=== PATIENT | male | born 1995 | race Caucasian/White ===

== ENCOUNTER 2025-03-13 11:08 | Emergency (ER) | payer MEDICAID, SELFPAY ==
[2025-03-13 11:11] VITALS: BP 145/98; PULSE 80; RESP 18; TEMP 36.7; O2SAT 97; BMI 25.7
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
== END 2025-03-13 11:49 | disposition home or self-care (01) ==
PROVIDERS: Emergency Provider Family Medicine
DX: Z02.89 Encounter for other administrative examinations (principal); Z04.1 Encounter for examination and observation following transport accident
CPT/HCPCS: 99281

== ENCOUNTER 2025-04-03 09:50 | Emergency (ER) | payer MEDICAID, SELFPAY ==
[2025-04-03 09:50] VITALS: BMI 27.1
[2025-04-03 10:06] VITALS: BP 153/93; PULSE 92; RESP 19; TEMP 36.8; O2SAT 98
--- NOTE | 2025-04-03 10:09 | EDNOTE_ITS ---
ED Skin Abcess FB-RME/HPI General Chief complaint: Skin/Abscess/Foreign Body Stated complaint: abscess Time Seen by Provider: 04/03/25 09:52 Arrival date/time: 04/03/25 09:50 29-year-old male presents to the emergency department for complaints of right- sided cheek swelling and dental pain Limitations: no limitations Related Data Previous Rx's ?Medication ?Instructions ?Recorded clindamycin HCl 150 mg capsule 450 mg (3 x 150 mg) PO TID 7 days 04/03/25 #63 caps hydrocodone 5 mg-acetaminophen 325 1 tab PO BID PRN pa in #6 tabs 04/03/25 mg tablet ibuprofen 800 mg tablet 800 mg PO TID PRN pain #30 t abs 04/03/25 Allergies Allergy/AdvReac Type Severity Reaction Status Date / Time amoxicillin (From Augmentin) Allergy Verified 04/03/25 09:51 clavulanic acid (From Allergy Verified 04/03/25 09:51 Augmentin) Review of Systems Review of Systems Systems Reviewed: All systems reviewed, normal except as documented Constitutional Constitutional: Reports system reviewed and no additional complaints, except as documented, Denies fever(s) and Denies headache(s) Eyes Eyes: Reports system reviewed and no additional complaints, except as documented and Denies blurry vision ENT Ears, Nose, Mouth, and Throat: Reports system reviewed and no additional complaints, except as documented, Denies headache(s), Denies nasal congestion, Denies nasal discharge and Reports other (Dental abscess) Cardiovascular Cardiovascular: Reports system reviewed and no additional complaints, except as documented, Denies chest pain and Denies dyspnea Respiratory Respiratory: Reports system reviewed and no additional complaints, except as documented, Denies chest congestion, Denies cough and Denies dyspnea Gastrointestinal Gastrointestinal: Reports system reviewed and no additional complaints, except as documented and Denies abdominal pain Integumentary/Breasts Skin/Breast: Reports system reviewed and no additional complaints, except as documented and Denies rash Neurologic Neurologic: Reports system reviewed and no additional complaints, except as documented, Reports as per HPI and Denies headache(s) Past Medical History Past Medical History CARDIAC: Negative Congestive Heart Failure RESPIRATORY: Negative Chronic Obstructive Pulmonary Disease (COPD) GENITOURINARY: Negative Renal Disease ENDOCRINE: Negative Diabetes Mellitus Type 1 or Diabetes Mellitus Type 2 Social History SMOKING STATUS: Never smoker SECOND HAND EXPOSURE: Yes SUBSTANCE USE: former substance user, marijuana and amphetamines ED Exam General Limitations: Present no limitations General appearance: Present alert and in no apparent distress Head Head exam: Present atraumatic, normocephalic and normal inspection Eye Eye exam: Present normal appearance, PERRL and EOMI ENT ENT exam: Present mucous membranes moist and other (Dental abscess) Neck Neck exam: Present normal inspection, full ROM and trachea midline Chest Chest inspection: Present normal inspection and symmetric chest wall rise Respiratory Respiratory exam: Present normal lung sounds bilaterally Cardiovascular Cardiovascular exam: Present regular rate, normal rhythm and normal heart sounds Abdominal Exam Abdominal exam: Present soft and normal bowel sounds Extremities Exam Extremities exam: Present normal inspection and full ROM Back Exam Back exam: Present normal inspection and full ROM Neurological Exam Neurological exam: Present alert, oriented X3 and CN II-XII intact Psychiatric Psychiatric exam: Present normal affect and normal mood Skin Skin exam: Present warm, dry, intact and normal color Course Quality Measures none Orders Category Date Time Status Clindamycin Vial [Cleocin vial] Med 04/03/25 10:09 Discontinued 600 mg IM X1 ONE HYDROcodone*/APAP 5/325 [[place] 5/325] Med 04/03/25 10:09 Discontinued 1 tab PO X1 ONE Ibuprofen Tab [Motrin Tab] Med 04/03/25 10:09 Discontinued 800 mg PO X1 ONE Vital Signs Vital signs: Vital Signs Temperature 98.3 F 04/03/25 10:06 Pulse Rate 92 04/03/25 10:06 Respiratory Rate 19 04/03/25 10:06 Blood Pressure 153/93 H 04/03/25 10:06 Pulse Oximetry (%) 98 04/03/25 10:06 Oxygen Delivery Method Room Air 04/03/25 10:06 O2 saturation 98% room air within normal limit Skin / Abscess / Foreign Body MDM Narrative MDM Narrative:: 29-year-old male presents to the emergency department for complaints of right- sided cheek swelling and dental pain Clinically patient appears to have dental abscess Patient given clindamycin ibuprofen and [place] Patient instructed to take antibiotics and pain medication as prescribed and to follow-up with dentist as soon as possible for emergent concerns to return immediately Patient data External records reviewed:: [facility] previous records Clinical information provided by:: patient Social determinants that could affect healthcare access:: none Patient has the following chronic illnesses:: None How is presenting disease/condition affected by chronic disease/condition?: no chronic disease Evaluation data The following diagnostics were reviewed and interpreted by me:: other (specify) Lab and/or radiology exams considered but not ordered:: Considered not indicated Interpretation Summary: N/A Medications / Prescriptions Medications or Prescriptions considered but not ordered:: Given Medication administrations:: Medication Administration History Discontinued Medications Hydrocodone Bitart/Acetaminophen (Hydrocodone/Apap 5/325 Tablet) 1 tab PO X1 ONE Stop: 04/03/25 10:10 Last Admin: 04/03/25 10:19 Dose: 1 tab Documented By: Clindamycin Phosphate (Clindamycin Phos Inj 150 Mg/Ml Vial 6 Ml) 600 mg IM X1 ONE Stop: 04/03/25 10:10 Last Admin: 04/03/25 10:21 Dose: 600 mg Documented By: Ibuprofen (Ibuprofen Tab 400 Mg Tablet) 800 mg PO X1 ONE Stop: 04/03/25 10:10 Last Admin: 04/03/25 10:20 Dose: 800 mg Documented By: Given Consultations Consultation(s) initiated? (list below): No Diagnosis Skin/Abscess Differential Diagnosis: abscess of skin or subcutaneous tissue and cellulitis Most likely diagnosis given after review of the tests above:: Dental abscess Admission Indicated Admission indicated?: not indicated Admission Request Was there a request for admission?: No Disposition Plan Disposition Plan: Discharge Discharge Attestation Discharge Attestation: The patient and all family members were given an opportunity to ask questions and understood the discharge instructions. Discharge instructions specifically effects, indications for sooner follow up or return to the emergency department, and the expected course of current diagnosis. Patient condition: Stable Discharge Plan Plan Patient Disposition: HOME (Self Care) Discharge Disposition comment: Stable Prescriptions/Referrals Prescriptions/Med Rec: New ibuprofen 800 mg tablet 800 mg PO TID PRN (Reason: pain) Qty: 30 0RF hydrocodone-acetaminophen 5-325 mg tablet 1 tab PO BID MDD 10 PRN (Reason: pain) Qty: 6 0RF clindamycin HCl 150 mg capsule 450 mg PO TID 7 Days Qty: 63 0RF Problem List Clinical Impression: Abscess, dental Patient/Caregiver Discharge Instructions Education Materials: Dental Abscess Additional Instructions: Please follow up with your dentist in the next 24-48hrs for any worsening symptoms return here immediately Print Language: Swedish Stand Alone Forms: Tania Award Info., Patient Portal Info Letter PA/INTEGRATION SOFTWARE ENGINEER Supervising Physician PA/INTEGRATION SOFTWARE ENGINEER Supervising Physician: dr [email or web address]
[2025-04-03] MEDS: HYDROcodone/APAP 5/325 TABLET 1 TAB PO (10:19)
[2025-04-03] MEDS: IBUPROFEN TAB 400 MG TABLET 800 MG PO (10:20)
[2025-04-03] MEDS: CLINDAMYCIN PHOS INJ 150 MG/ML VIAL 6 ML 600 MG IM (10:21)
== END 2025-04-03 10:32 | disposition home or self-care (01) ==
LOC: SERX 10:28
PROVIDERS: Emergency Provider Nurse Practitioner Primary Care; PCP Family Medicine
DX: K04.7 Periapical abscess without sinus (principal)
CPT/HCPCS: 96372; 99282; J0736; A9270